=== PATIENT | female | born 1985 | race Caucasian/White ===

== ENCOUNTER 2017-05-22 18:03 | Emergency (ER) | payer BC ==
--- NOTE | 2017-05-22 18:51 | UC ---
Back Pain HPI - HPI Summary HPI Summary: 32 YEAR OLD FEMALE PRESENTS WITH COMPLAINS OF BACK PAIN/SPASM AFTER SNEEZING. - History of Current Complaint Stated Complaint: BACK PAIN Time Seen by Provider: 05/22/17 18:51 Hx Obtained From: Patient Onset/Duration: Sudden Onset Timing: Constant Severity Initially: Moderate Severity Currently: Moderate Pain Scale Used: 0-10 Numeric - 8 Character: Sharp Aggravating: Movement Alleviating: Rest - Allergies/Home Medications Allergies/Adverse Reactions: Allergies Allergy/AdvReac Type Severity Reaction Status Date / Time Peanut Oil Allergy Rash Verified 05/22/17 19:09 Shellfish Allergy Allergy Swelling Verified 05/22/17 19:09 Of Face,Lips,& Throat Home Medications: Home Medications Acetaminophen [Acetaminophen Extra Stren] 500 mg PO ONCE PRN 05/22/17 [History Confirmed 05/22/17] Epinephrine [Epipen 2-Gladys] 0.3 mg IM SEE INSTRUCTIONS 05/22/17 [History Confirmed 05/22/17] Ibuprofen TAB* [Advil TAB*] 800 mg PO Q8H PRN 05/22/17 [History Confirmed ] hydrOXYzine HCL TAB* [Atarax TAB 50 MG *] 50 mg PO TID PRN 05/22/17 [History Confirmed 05/22/17] PMH/Surg Hx/FS Hx/Imm Hx Previously Healthy: Yes Review of Systems Constitutional: Negative Skin: Negative Eyes: Negative ENT: Negative Respiratory: Negative Cardiovascular: Negative Gastrointestinal: Negative Genitourinary: Negative Motor: Negative Neurovascular: Negative Musculoskeletal: Other: - LOWER BACK PAIN Neurological: Negative Psychological: Negative All Other Systems Reviewed And Are Negative: Yes Physical Exam Triage Information Reviewed: Yes Eye Exam: Normal ENT Exam: Normal Dental Exam: Normal Neck exam: Normal Neck: Positive: 1 Respiratory Exam: Normal Cardiovascular Exam: Normal Abdominal Exam: Normal Musculoskeletal: Positive: Other: - LOWER LUMBAR PARASLINAL BACK PAIN Neurological Exam: Normal Psychological Exam: Normal Skin Exam: Normal Back Pain Course/Dx - Differential Dx/Diagnosis Provider Diagnoses: LUMBAR PARASPINAL SPASM Discharge - Discharge Plan Condition: Stable Disposition: HOME Prescriptions: Methocarbamol TAB* [Robaxin 500 MG TAB*] 500 mg PO TID PRN #30 tab PRN Reason: Spasms Methylprednisolone [Medrol Dosepak 4 MG*] 4 mg PO .SEE GLADYS INSTRUCTION #21 tab Patient Education Materials: Low Back Strain (ED), Acute Low Back Pain (ED) Forms: *Work Release Referrals: No Primary Care Phys,NOPCP [Medical Doctor] -
[2017-05-22] MEDS ORDERED: methylPREDNISolone ACETATE 80* 80 MG/ML 1 ML VIAL IM ONE (19:38)
[2017-05-22 19:57] VITALS: BP 141/80
[2017-05-22] MEDS ORDERED: Cyclobenzaprine TAB* 10 MG PO ONE (20:20)
== END 2017-05-22 20:24 | disposition home or self-care (01) ==
LOC: UCCORT 18:03
DX: M62.830 Muscle spasm of back (principal); Z32.02 Encounter for pregnancy test, result negative
CPT/HCPCS: 81003; 84702; 87086; 96372; 99212; A9270-GY; G0463; J1040

== ENCOUNTER 2017-12-15 11:44 | Emergency (ER) | payer BC ==
[2017-12-15 12:47] VITALS: BP 130/86
--- NOTE | 2017-12-15 12:49 | UC ---
Complaint Female HPI - HPI Summary HPI Summary: Pt c/o urinary urgency and frequency, low back pain X 1 week. Pt denies unusual vaginal discharge. - History Of Current Complaint Stated Complaint: URINARY Time Seen by Provider: 12/15/17 12:27 Hx Obtained From: Patient Hx Last Menstrual Period: 12/05/17 ?: No Onset/Duration: Gradual Onset, Lasting Days - 7, Still Present Timing: Constant Severity Initially: Mild Severity Currently: Mild Pain Intensity: 4 Character: Dull Aggravating Factor(s): Nothing Alleviating Factor(s): Nothing Associated Signs And Symptoms: Positive: Back Pain - Risk Factors Ectopic Risk Factor: Negative Ovarian Torsion Risk Factor: Reproductive Age - Allergies/Home Medications Allergies/Adverse Reactions: Allergies Allergy/AdvReac Type Severity Reaction Status Date / Time peanut oil Allergy Rash Verified 12/15/17 12:36 shellfish allergy Allergy Swelling Uncoded 12/15/17 12:36 Of Face,Lips,& Throat PMH/Surg Hx/FS Hx/Imm Hx Previously Healthy: Yes - Surgical History Surgical History: Yes Surgery Procedure, Year, and Place: CHOLECYSTECTOMY-2014. APPY-AGE 13. C-SECT- -2013 - Family History Known Family History: Positive: Cardiac Disease - Social History Occupation: Employed Full-time Lives: With Family Alcohol Use: None Substance Use Type: None Smoking Status (MU): Current Every Day Smoker Type: Cigarettes Amount Used/How Often: 5-6 CIGS A DAY Length of Time of Smoking/Using Tobacco: 13 YRS Have You Smoked in the Last Year: Yes Review of Systems Constitutional: Fatigue Skin: Negative Eyes: Negative ENT: Negative Respiratory: Negative Cardiovascular: Negative Genitourinary: Negative, Frequency, Urgency Motor: Negative Neurovascular: Negative Musculoskeletal: Myalgia Neurological: Negative Psychological: Negative Is Patient Immunocompromised?: No All Other Systems Reviewed And Are Negative: Yes Physical Exam Triage Information Reviewed: Yes Appearance: Well-Appearing Vital Signs: Initial Vital Signs Temp 98.2 F 12/15/17 12:41 Pulse 65 12/15/17 12:41 Resp 20 12/15/17 12:41 BP 130/86 12/15/17 12:41 Pulse Ox 100 12/15/17 12:41 Vital Signs Reviewed: Yes Eye Exam: Normal ENT Exam: Normal ENT: Positive: Hearing grossly normal Dental Exam: Normal Neck exam: Normal Respiratory Exam: Normal Cardiovascular Exam: Normal Abdominal Exam: Normal Musculoskeletal Exam: Normal Neurological Exam: Normal Psychological Exam: Normal Skin Exam: Normal Complaint Female Dx - Differential Dx/Diagnosis Differential Diagnosis/HQI/PQRI: Urinary Tract Infection Provider Diagnoses: UTI Discharge - Discharge Plan Condition: Stable Disposition: HOME Prescriptions: Cephalexin CAP* [Keflex 500 CAP*] 500 mg PO Q12H #14 cap Patient Education Materials: Urinary Tract Infection in Women (ED) Referrals: Katty Stuart MD [Primary Care Provider] - If Needed
== END 2017-12-15 13:34 | disposition home or self-care (01) ==
LOC: UCCORT 11:44
DX: N39.0 Urinary tract infection, site not specified (principal); Z32.02 Encounter for pregnancy test, result negative; Z91.010 Allergy to peanuts; Z91.013 Allergy to seafood; F17.210 Nicotine dependence, cigarettes, uncomplicated
CPT/HCPCS: 81003; 84702; 87086; 87798; 99212; G0463

== ENCOUNTER 2017-12-19 15:09 | Emergency (ER) | payer BC ==
[2017-12-19 15:55] VITALS: BP 147/84
--- NOTE | 2017-12-19 16:07 | UC ---
UC General HPI - HPI Summary HPI Summary: PT SEEN HERE 4 DAYS AGO AND DX WITH A UTI. SHE WAS TX WITH KELFLEX. SHE RETURNS WITH ONGOING LOW BACK PAIN AND FREQUENT URINATION, NO IMPROVEMENT. SHE HAS F/U WITH HER PCP IN AM. PT DENIES RISK/CONCERNS/SYPMTOMS OF STD. NO FEVER OR ABDOMINAL PAIN. HCG ON 12/15/17 WAS NEGATIVE. CULTURE REVIEWED AND WAS NEGATIVE FROM HER PRIOR VISIT WELL. PT TAKING IB FOR PAIN. - History of Current Complaint Hx Obtained From: Patient Hx Last Menstrual Period: 11/28/17 Timing: Constant Pain Intensity: 5 Aggravating: LOW BACK MORE UNCOMFORTABLE WITH MOVEMENT. Alleviating: NOTHING Associated Signs & Symptoms: Positive: Other - NO NUMB/WEAK EXTREMITIES.. Negative: Abdominal Pain, Fever <Tierney Avalos - Last Filed: 12/19/17 16:36> <Lita Mauricio - Last Filed: 12/19/17 19:09> - History of Current Complaint Chief Complaint: UCBackPain Stated Complaint: URINARY W/BACK PAIN RECHECK Time Seen by Provider: 12/19/17 15:52 - Allergy/Home Medications Allergies/Adverse Reactions: Allergies Allergy/AdvReac Type Severity Reaction Status Date / Time peanut oil Allergy Rash Verified 12/19/17 15:52 shellfish allergy Allergy Swelling Uncoded 12/19/17 15:52 Of Face,Lips,& Throat PMH/Surg Hx/FS Hx/Imm Hx - Additional Past Medical History Additional PMH: KIDNEY STONES, UTI'S, hpv - Surgical History Surgical History: Yes Surgery Procedure, Year, and Place: CHOLECYSTECTOMY-2014. APPY-AGE 13. C-SECT- -2012 - Family History Known Family History: Positive: Cardiac Disease - Social History Occupation: Employed Full-time Lives: With Family Alcohol Use: None Substance Use Type: None Smoking Status (MU): Current Every Day Smoker Type: Cigarettes Amount Used/How Often: 5-6 CIGS A DAY Length of Time of Smoking/Using Tobacco: 13 YRS Have You Smoked in the Last Year: Yes - Immunization History Vaccination Up to Date: Yes <Tierney Avalos - Last Filed: 12/19/17 16:36> Review of Systems Genitourinary: Frequency Musculoskeletal: Other: - BACK ACHE-LOW CENTRAL Is Patient Immunocompromised?: No All Other Systems Reviewed And Are Negative: Yes <Tierney Avalos Last Filed: 12/19/17 16:36> Physical Exam Triage Information Reviewed: Yes Appearance: Well-Appearing Vital Signs: Initial Vital Signs Temp 97 F 12/19/17 15:49 Pulse 96 12/19/17 15:49 Resp 16 12/19/17 15:49 BP 147/84 12/19/17 15:49 Pulse Ox 100 12/19/17 15:49 Vital Signs Reviewed: Yes Eyes: Positive: Conjunctiva Clear ENT: Positive: Normal ENT inspection Neck: Positive: Supple, Nontender, No Lymphadenopathy Respiratory: Positive: Lungs clear, Normal breath sounds Cardiovascular: Positive: RRR, No Murmur, Pulses Normal Abdomen Description: Positive: Nontender, No Organomegaly, Soft. Negative: CVA Tenderness (R), CVA Tenderness (L), Distended, Guarding Bowel Sounds: Positive: Present Musculoskeletal: Positive: Other: - Back has no deformity, swelling or discoloration. Tender over low lumbar region. ROM is intact. s/v/m is intact x4. <Tierney Avalos - Last Filed: 12/19/17 16:36> Vital Signs: Initial Vital Signs Temp 97 F 12/19/17 15:49 Pulse 96 12/19/17 15:49 Resp 16 12/19/17 15:49 BP 147/84 12/19/17 15:49 Pulse Ox 100 12/19/17 15:49 <Lita Mauricio - Last Filed: 12/19/17 19:09> Diagnostics - Laboratory Diagnostic Studies Completed/Ordered: u/a=2+ leuks thus will culture again <Tierney Avalos - Last Filed: 12/19/17 16:36> Course/Dx - Course Course Of Treatment: pt is non toxic. no acute abdomen. denies risk/concern for std's and has declined a pelvic exam here citing has f/u appt with her pcp tomorrow. doubt renal colic because no hematuria and back pain is central and lower. uti is still possible thus will reculture and tx with different class of antibiotic. given hx of HPV and uterine CA in mom, other pelvic pathology is of concern but again pelvic exam here declined because wants to defer to her pcp tomorrow. could be musculoskeletal issue ; however, that should not cause urinary frequency. hx, pe and tx plan was d/w Dr Mauricio. - Differential Dx - Multi-Symptom Provider Diagnoses: Urinary frequency, low back ache, possible uti <Tierney Avalos - Last Filed: 12/19/17 16:36> Discharge <Tierney Avalos - Last Filed: 12/19/17 16:36> <Lita Mauricio - Last Filed: 12/19/17 19:09> - Discharge Plan Condition: Stable Disposition: HOME Prescriptions: Nitrofurantoin Macrocrystals* [Macrodantin*] 100 mg PO BID 7 Days #14 cap Patient Education Materials: Urinary Tract Infection in Women (ED), Dysuria (ED ), Back Pain (ED) Referrals: Katty Stuart MD [Primary Care Provider] - 1 Day Additional Instructions: STOP THE KEFLEX Attestation Statement User Type: Provider - I was available for consult. This patient was seen by the ANA MARIA. The patient was not presented to, seen by, or examined by me. Rashidj <Lita Mauricio - Last Filed: 12/19/17 19:09>
== END 2017-12-19 16:37 | disposition home or self-care (01) ==
LOC: UCCORT 15:09
DX: R35.0 Frequency of micturition (principal); M54.5 Low back pain; Z87.440 Personal history of urinary (tract) infections; Z87.442 Personal history of urinary calculi; F17.210 Nicotine dependence, cigarettes, uncomplicated
CPT/HCPCS: 81003; 87086; 99212; G0463